=== PATIENT | female | born 1945 | race Caucasian/White ===

== ENCOUNTER 2022-11-22 15:42 | Outpatient (AMB) | payer MEDICARE, SELFPAY ==
--- NOTE | 2022-11-22 16:03 | MHC.OFFWIV ---
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 Allergies adhesive [ADHESIVE] Allergy (Unknown, Verified 11/22/22 16:04) HIVES penicillin G [PENICILLIN G] Allergy (Unknown, Verified 11/22/22 16:04) DIFFICULTY BREATHING tetracycline [TETRACYCLINE] Allergy (Unknown, Verified 11/22/22 16:04) DIFFICULTY BREATHING HPI HPI Comments History of Present Illness Details This is a 76-year-old female who was preparing meals at the [facility] when she cut her right index finger on a kitchen knife prior to arrival. The patient states that she is right-handed and was reaching under a towel to grab a knife when the laceration occurred. Patient states that her most recent tetanus immunization is up-to-date. Review of Systems Const All systems reviewed & are unremarkable except as noted in HPI and below Musc Reports no additional complaints Skin/Breast Reports system reviewed and no additional complaints, except as documented, Reports as per HPI and Reports wounds (laceration right index finger) Physical Exam Vital Signs: Last Vital Signs Temp 98.2 F 11/22/22 16:11 Pulse 88 11/22/22 16:11 BP 160/90 H 11/22/22 16:11 Pulse Ox 94 11/22/22 16:11 Oxygen Delivery Method Room Air 11/22/22 16:11 BMI result Body Mass Index 45.3 Const General: cooperative, healthy appearing, comfortable and no acute distress Nutritional Appearance: obese Orientation/consciousness: patient oriented x3 Limitations: no limitations Skin Trauma: laceration (1.5cm linear laceration; no evidence of a retained foreign body) right lateral 2nd finger Neuro General: patient oriented x3 Extrem Right upper extremity: Extremity exam: right hand Details: abnormal to inspection (laceration RIF), neuromotor exam normal and neurosensory exam normal Psych Appearance: grossly normal Mental Status: mental status grossly normal Speech and movement: Normal speech and movement present Affect: normal affect Attitude: cooperative Thought process: Normal thought process present Thought content: Normal thought content present Insight: Good insight present (Psych) Judgement: Good judgement present (Psych) Office Procedures Laceration Repair Details: 1.5cm linear laceration right distal index finger lateral aspect. Laceration repair performed by: Terese Oneal Informed consent given: Yes Location: Right index finger Length: 1.5 Sedation: No Anesthesia: 2% lidocaine Irrigation: saline Preparation: betadine Deep closure: No Skin closure: nylon Technique: 4 simple interrupted 6-0 Prolene sutures placed for adequate closure Topical treatment: triple antibiotic Tetanus toxoid ordered: No Patient tolerated procedure: well [id number] Repair <2.5cm Procedure code (CPT) selection complete Assessment & Plan Assessment & Plan (1) Finger laceration: Code(s): S61.219A - Laceration without foreign body of unspecified finger without damage to nail, initial encounter Plan: Patient is seen and evaluated; this laceration will require sutures for approximation and closure. Please see procedure note. Suture care instructions are given and the patient will return in 7 days for suture removal, sooner for any signs of infection. Coding Level of Care Code Est Pt Level 4 (70437) Diagnoses Finger laceration S61.219A Time Spent (min) 35
[2022-11-22 16:11] VITALS: BP 160/90; PULSE 88; TEMP 36.8; O2SAT 94; BMI 45.3
== END 2022-11-22 17:01 | disposition home or self-care (01) ==
PROVIDERS: PCP Internal Medicine; Visit Provider Physician Assistant
DX: S61.220A Laceration with foreign body of right index finger without damage to nail, initial encounter (principal)
CPT/HCPCS: 12001; 99214

== ENCOUNTER 2022-11-29 14:33 | Outpatient (AMB) | payer MEDICARE, SELFPAY ==
[2022-11-29 14:42] VITALS: BP 140/90; PULSE 66; TEMP 36.2; O2SAT 97; BMI 45.3
--- NOTE | 2022-11-29 14:42 | AM.OFFWIN_ITS ---
Intake Vital Signs 11/29/22 14:42 Height 5 ft 7 in Weight 289 lb BMI 45.3 BP 140/90 H Blood Pressure Location Rt brachial Position Sitting Pulse 66 Pulse Source Pulse Oximeter Temp 97.2 F Temp Source Temporal Artery Scan Pulse Oximetry (%) 97 Intake Visit Reasons: EST/stitch removal Intake Note: pt is here for stitch removal Patient Tobacco Use Status: Never used Tobacco Allergies adhesive [ADHESIVE] Allergy (Unknown, Verified 11/29/22 14:43) HIVES penicillin G [PENICILLIN G] Allergy (Unknown, Verified 11/29/22 14:43) DIFFICULTY BREATHING tetracycline [TETRACYCLINE] Allergy (Unknown, Verified 11/29/22 14:43) DIFFICULTY BREATHING Do you need a note to return to daycare/school/sports/work: Yes HPI EST/stitch removal HPI Details 77-year-old female presents to the [facility] for a sick visit. She would like to get the sutures removed. PFSH Social History Patient Tobacco Use Status: Never used Tobacco Physical Exam Vital Signs: Last Vital Signs Temp 97.2 F 11/29/22 14:42 Pulse 66 11/29/22 14:42 BP 140/90 H 11/29/22 14:42 Pulse Ox 97 11/29/22 14:42 BMI result Body Mass Index 45.3 Skin Other: Finger: Wound approximation is good. Using sterile forceps sutures were removed. Patient tolerated the procedure well. Assessment & Plan Assessment & Plan (1) Finger laceration: Code(s): S61.219A - Laceration without foreign body of unspecified finger without damage to nail, initial encounter Plan: Patient tolerated the suture removal well. Coding Level of Care Code Est Pt Level 3 (88827) Diagnoses Finger laceration S61.219A
== END 2022-11-29 15:35 | disposition home or self-care (01) ==
PROVIDERS: PCP Internal Medicine; Visit Provider Internal Medicine
DX: S61.219A Laceration without foreign body of unspecified finger without damage to nail, initial encounter (principal)
CPT/HCPCS: 99213

== ENCOUNTER 2023-09-02 14:16 | Outpatient (AMB) | payer MEDICARE, SELFPAY ==
[2023-09-02 14:21] VITALS: BP 118/76; PULSE 66; TEMP 36.7; O2SAT 96; BMI 44.5
--- NOTE | 2023-09-02 14:21 | AM.OFFWIN_ITS ---
Intake Vital Signs 09/02/23 14:21 Height 5 ft 7 in Weight 284 lb BMI 44.5 BP 118/76 Blood Pressure Location Rt radial Position Sitting Pulse 66 Pulse Source Pulse Oximeter Temp 98.1 F Temp Source Oral Pulse Oximetry (%) 96 Oxygen Delivery Method Room Air Intake Visit Reasons: EP gout lft big toe Intake Note: pt here c/o gout flare LT big toe. Started yesterday Patient Tobacco Use Status: Never used Tobacco Allergies adhesive [ADHESIVE] Allergy (Unknown, Verified 09/02/23 14:27) HIVES penicillin G [PENICILLIN G] Allergy (Unknown, Verified 09/02/23 14:27) DIFFICULTY BREATHING tetracycline [TETRACYCLINE] Allergy (Unknown, Verified 09/02/23 14:27) DIFFICULTY BREATHING Do you need a note to return to daycare/school/sports/work: No HPI HPI Comments History of Present Illness Details 77 y/o female patient who [facility] with c/o Gout Flare up. Pt c/o left Big toe pain and swelling due to Gout. She is currently taking Allopurinol 100 mg every other day. [facility] Social History Patient Tobacco Use Status: Never used Tobacco Review of Systems Const All systems reviewed & are unremarkable except as noted in HPI and below Physical Exam Vital Signs: Last Vital Signs Temp 98.1 F 09/02/23 14:21 Pulse 66 09/02/23 14:21 BP 118/76 09/02/23 14:21 Pulse Ox 96 09/02/23 14:21 Oxygen Delivery Method Room Air 09/02/23 14:21 BMI result Body Mass Index 44.5 Const General: comfortable and no acute distress Nutritional Appearance: obese Orientation/consciousness: patient oriented x3 Skin General skin exam: no rashes or lesions noted Neuro Other: Walks with a cane General: patient oriented x3 and moves all extremities Extrem Right lower extremity: foot Details: normal capillary refill and normal to inspection Left lower extremity: foot (Left great toe swollen, tender and redness) Details: normal capillary refill, tenderness Location: of the great toe Location: along the dorsal aspect and along the entire digit, toes with normal ROM, warmth and edema Location: of the great toe Psych Speech and movement: Normal speech and movement present Assessment & Plan Assessment & Plan (1) Gout flare: Code(s): M10.9 - Gout, unspecified Qualifiers: Gout site: toe Gout etiology: other secondary cause Laterality: left Qualified Code(s): M10.472 - Other secondary gout, left ankle and foot Plan: Advised to F/U with PCP (@ [facility], Dr. Jacob). Prescribed Colchicine and Prednisone Ice/Hot Rest Foot Lifestyle and Diet changes Medications: New prednisone 50 mg PO DAILY 5 days 5 tabs 0RF M10.472 - Other secondary gout, left ankle and foot colchicine 0.6 mg PO DAILY 20 caps 0RF M10.472 - Other secondary gout, left ankle and foot Coding Level of Care Code New Pt Level 3 (22602) Diagnoses Acute gout due to other secondary cause involving toe of left foot M10.472 Gout site: toe Gout etiology: other secondary cause Laterality: left Time Spent (min) 15
== END 2023-09-02 15:00 | disposition home or self-care (01) ==
PROVIDERS: PCP Internal Medicine; Visit Provider Nurse Practitioner Family
DX: M10.472 Other secondary gout, left ankle and foot (principal)
CPT/HCPCS: 99203

== ENCOUNTER 2024-07-31 10:28 | Outpatient (AMB) | payer MEDICARE, SELFPAY ==
--- NOTE | 2024-07-31 11:03 | AM.OFFWIN_ITS ---
Intake Vital Signs 07/31/24 11:08 Weight 279 lb BP 126/82 Blood Pressure Location Lt brachial Position Sitting Pulse 63 Pulse Source Pulse Oximeter Pulse Oximetry (%) 94 Oxygen Delivery Method Room Air Intake Visit Reasons: EP ? stitches on LT thumb Intake Note: Patient here for laceration on left thumb that happened this morning. Patient Tobacco Use Status: Never used Tobacco Allergies adhesive [ADHESIVE] Allergy (Unknown, Verified 07/31/24 11:12) HIVES penicillin G [PENICILLIN G] Allergy (Unknown, Verified 07/31/24 11:12) DIFFICULTY BREATHING tetracycline [TETRACYCLINE] Allergy (Unknown, Verified 07/31/24 11:12) DIFFICULTY BREATHING Do you need a note to return to daycare/school/sports/work: No HPI HPI Comments History of Present Illness Details History of Present Illness - The patient is a 78-year-old female pr esenting with a laceration of the left thumb, sustained this morning while using hedge clippers. - The incident occurred around 9:15 AM. The patient reported that she nicked her finger, causing a laceration with a flap. - After the injury, she attempted to rep osition the flap, which resulted in the wound bleeding substantially. The blood seemed to form an adhesive that partially closed the wound. - She takes a daily baby aspirin. - She irrigated it briefly with water bu t was unable to do more due to the extent of bleeding. - The patient took baby aspirin earlier today, potentially exacerbating the bleeding. - Her Tdap vaccination is current, with the last dose administered three years prior. Physical Exam General: Cooperative, healthy appearing, comfortable, no acute distress and well developed Orientation: Patient oriented x3 Limitations: No limitations Head: Normal to inspection Ears: Hearing grossly normal bilaterally Nose: Normal External nose present Face and sinus: Normal facial exam Eyes: Appearance normal, both eyes and all related structures Neck: Normal visual inspection and Yes full ROM Respiratory: Normal respiratory effort and able to speak in complete sentences. Skin: No rashes or lesions noted Neuro: Patient oriented x3 Extremities: Normal to inspection, left thumb tip 0.3cm flap, NVI, nail undamaged, full ROM left thumb PFSH Social History Patient Tobacco Use Status: Never used Tobacco Review of Systems Const All systems reviewed & are unremarkable except as noted in HPI and below Physical Exam Vital Signs: Last Vital Signs Pulse 63 07/31/24 11:08 BP 126/82 07/31/24 11:08 Pulse Ox 94 07/31/24 11:08 Oxygen Delivery Method Room Air 07/31/24 11:08 Office Procedures AMB Laceration Repair Details: Cleaned with sterile saline with some betadine diluted in it, irrigated wound, hemostasis was assisted by using a pressure dressing then 3 steri-strips applied with gauze covering. Laceration repair performed by: Chinyere Arce Explained risks and benefits to parent: Yes Informed consent given: Yes Consent signed: No Location: left thumb tip Length: 0.75c Sedation: No Irrigation: saline (with small amt of betadine diluted) Volume (mls): 60 Preparation: betadine Wound exploration: none Deep closure: No Skin closure: other (3 steri strips) Topical treatment: dry Tetanus toxoid ordered: No Patient tolerated procedure: [place]: [place] [id number] Repair <2.5cm Procedure code (CPT) selection complete Laceration Repair Procedure Location: left thumb tip, 0.75cm skin flap bleeding. Text: After discussion of risk and benefits, written informed consent was obtained. The area was cleaned, prepped, and draped using sterile technique. The wound was debrided of any foreign material or devitalized tissue. Wound edges were approximated and closed using 3 steri-strips. Standard wound dressing was applied. Wound care instructions were given. The patient tolerated the procedure well. The patient was instructed to return for increased redness or red streaking, pain, swelling, pus, fevers, chills, or any other signs or symptoms of infection or worsening. DAC Assessment & Plan Assessment & Plan (1) Finger laceration: Code(s): S61.219A - Laceration without foreign body of unspecified finger without damage to nail, initial encounter Qualifiers: Damage to nail status: without damage Encounter type: initial encounter Finger: thumb Foreign body presence: without foreign body Laterality: left Qualified Code(s): S61.012A - Laceration without foreign body of left thumb without damage to nail, initial encounter Plan: The primary management approach for the patient's left thumb laceration involves conservative treatment due to the presence of a skin flap. Adhesion support was provided via Steri-Strips after determining that the wound is less suited to sutures, given the potential for increased bleeding. Cleaned with sterile saline with some betadine diluted in it, irrigated wound, hemostasis was assisted by using a pressure dressing then 3 steri-strips applied with gauze covering. Instructed pt to remove gauze tomorrow morning. The patient was instructed to keep the area clean with minimal disturbance and advised against using hydrogen peroxide. She received bacitracin ointment to promote healing. Monitoring for signs of complications, swelling, drainage, redness, fevers or pain, is emphasized, with awareness that her aspirin use may influence bleeding time. No booster for Tdap is warranted at this time, given her recent vaccination status, Tdap 01/15/22. Patient was informed and verbally consented to the use of an ambient scribe for clinic note documentation during this visit. Orders: Orders AMB Laceration Repair Today S61.012A - Laceration without foreign body of left thumb without damage to nail, initial encounter Coding Level of Care Code New Pt Level 4 (93875) Diagnoses Laceration of left thumb without foreign body without damage to nail, initial encounter S61.012A Damage to nail status: without damage Encounter type: initial encounter Finger: thumb Foreign body presence: without foreign body Laterality: left CPT Codes Office Procedure - Laceration Repair 1: [id number] Repair <2.5cm ([id number])
[2024-07-31 11:08] VITALS: BP 126/82; PULSE 63; O2SAT 94
--- OUTSIDE RECORDS SUMMARY | 2024-07-31 11:15 | XMS_ITS ---
Author Organization [facility] Address [address] [place] [address] Care Team Providers Care Ordnance Technician Name Role Phone Aleta Cruz Primary Care Provider Sharad John Unavailable [phone] Allergies Allergen (clinical drug ingredient) Drug/Non Drug Allergy documented on EMR Reaction Allergy Type Onset Date Status Novocain Unknown Drug Allergy Active tetracycline Tetracycline HCl throat tightens Drug Allergy Active Adhesive rash Allergy Active Penicillin throat tightens Drug Allergy Active REASON FOR VISIT At Risk Footcare, Painful Nail(s) aggravated by shoes and causing difficulty standing/walking, Toe Irritation Medications Medication SIG (Take, Route, Frequency, Duration) Notes Start Date End Date Status hydroCHLOROthiazide 12.5 MG 1 capsule Orally Once a day for 30 day(s) Not-Taking Levoxyl 50 MCG 1 tablet on an empty stomach in the morning Orally Once a day for 30 day(s) Not-Taking CeleBREX 100 MG 1 capsule Orally Twice a day for 30 day(s) Not-Taking predniSONE 1 MG as directed Orally Not-Taking Extra Depth Orthopedic Shoes, (1) Pair With (3) Pair Custom Heat Molded Multidensity Innersoles Dx: NIDDM/PVD(E11.51), Hammertoe Foot Deformity(M20.41,M20 .42), Preulcerative Skin Lesion(s)(L85.1) Wear Daily for 365 days 05/22/2024 Active Ciclopirox Olamine 0.77 % 1 application to affected area Externally to feet Twice a day for 30 days Not-Taking Ammonium Lactate 12 % 1 application to affected area Externally to feet Twice a day for 30 days Not-Taking Antibiotic 10 days Not-Takin g Coumadin Not-Taking Levothyroxine Sodium Not-Taking Triamterene 37.5-25 Active Compression Stockings 20-30mm Hg 1 pair wear daily for 30 days Active Colcrys 0.6 MG 1 tablet Orally Up to Four times a day for 5 days 02/14/2024 Active metFORMIN HCl Not-Ta paulino Omeprazole 40 MG Orally Once a day Not-Taking Famotidine Active Allopurinol 100 MG 1 tablet Orally Once a day Active Levothyroxine Sodium 125 MCG 1 tablet in the morning on an empty stomach Orally 8 a week Active Social History Tobacco Use: Social History Observation Description Date Details (start date - stop date) Never Smoker NA - NA Tobacco use other than smoking: Question Answer Notes Are you an other tobacco user? No Tobacco Control (Standard) Question Answer Notes Tobacco use: Nonsmoker Additional Findings: Tobacco non-user Current no nsmoker AUDIT-C (Standard) Question Answer Notes Did you have a drink containing alcohol in the p ast year? No Points 0 Interpretation Negative Vital Signs Height 5ft 7in in 05/22/2024 Weight 275 lbs 05/22/2024 BMI 43.07 kg/m2 05/22/2024 Blood pressure systolic 120 mm Hg 05/23/19 25 Blood pressure diastolic 80 mm Hg 025 Procedures Procedure Date Ordered Date Performed Result Body Sit e 02651-ZVXDDUD NAIL, 6 OR MORE 05/22/2024 N/A 75108-QCQP SKIN LESIONS, OVER 4 05/22/2024 N/A Encounters Encounter Location Date Provider Diagnosis [facility] [address] [place] [address] 05/22/2024 Sharad Kan Type 2 diabetes mellitus with diabetic peripheral angiopathy without gangrene E11.51 ; Tinea unguium B35.1 ; Pain in right toe(s) M79.674 ; Pain in left toe(s) M79.675 ; Other hammer toe(s) (acquired), left foot M20.42 and Other hammer toe(s) (acquired), right foot M20.41 Assessments Encounter Date Diagnosis (ICD Code) Assessment Notes Treatment Notes Treatment Clinical Notes Section Notes 05/22/2024 Type 2 diabetes mellitus with diabetic peripheral angiopathy without gangrene (ICD-10 - E11.51) Q7(A), Q8(2B), Q9(1B,2C) 05/22/2024 Tinea unguium (ICD-10 - B35.1) 05/22/2024 Pain in right toe(s) (ICD-10 - M79.674) 05/22/2024 Pain in left toe(s) (ICD-10 - M79.675) 05/22/2024 Other hammer toe(s) (acquired), left foot (ICD-10 - M20.42) 05/22/2024 Other hammer toe(s) (acquired), right foot (ICD-10 - M20.41) Patient Educated with: DIABETIC FOOT CARE INSTRUCTIONS.p df (DIABETIC FOOT CARE INSTRUCTIONS.p df) Plan Of Treatment Medication Medication Name Sig Start Date Stop Date Notes Extra Depth Orthopedic Shoes , (1) Pair With (3) Pair Custom Heat Molded Multidensity Innersoles Dx: NIDDM/PVD(E11.51), Hammertoe Foot Deformity(M20.41,M20.42), Preulcerative Skin Lesion(s)(L85.1) Wear Daily for 365 days 05/22/2024 Treatment Notes Assessment Notes Other hammer toe(s) (acquired), right fo ot Patient Educated with: DIABETIC FOOT CARE INSTRUCTIONS.pdf (DIABETIC FOOT CARE INSTRUCTIONS.pdf) Pending Test Test Name Order Date 14138-LGMOYRI NAIL, 6 OR MORE 05/22/2024 27457-ULEU SKIN LESIONS, OVER 4 05/23/19 25 Next Appt Details Follow Up: prn, Reason: Provider Name:Sharad Kan , 08/21/2024 11:00:00 AM, [address] [place] [address], [id number], Procedure Notes * Category Sub-Category Detail Notes Debride Nail 6-10 Nail debridement Due to the cl inical pathology outlined in the exam findings, performance of this nail treatment is medically necessary as its management by an unskilled/untrained nonprofessional would put this patients foot and overall health at risk. Therefore, debridement to affected nail(s), as described in exam ( TA, T1, T2, T3, T4, T6, T7, T8, T9 ), was performed exclusively by the physician of record to reduce/remove overall nail length, girth, thickness, subungual debris, and necrotic tissue, by manual and/or electrical means through the use of a nail nipper and/or dremel-type centerless grinder tender, to a more viable healthy nail plate or bed tissue 6-10 nails in total. Silver nitrate was used for any petechial bleeding as necessary. Definitive antifungal treatment options, both pharmaceutical and surgical, have been reviewed and discussed with the patient. The patient solely prefers the use of intermittent/as needed professional debridement services for their nail condition and understands the need for additional periodic treatments to maintain effectiveness in symptomatic relief - 12578 Keratoma Treatment Parring or Cutting o f Benign Hyperkeratotic Lesion(s) (-57) More than 4 Lesions - Due to the at risk nature of the patients medical condition as documented in the exam findings, performance of this keratoderma treatment is medically necessary as its management by an unskilled/untrained nonprofessional would put this patients foot and overall health at risk. Therefore, the benign hyperkeratotic lesions, ( 6 ) in total, locations as stated and described in the exam ( Medial plantar, IPJ, TA, Medial plantar, IPJ, T5, SUB MTH (s), 1, B/L , Plantar, Heel(s), B/L ), were pared, and/or cut utilizing a sterile 15 blade, tissue nippers, and/or power dremel instrumentation by the physician of record - 60220, Q8 Progress Notes * MERCEDESEvette MCMAHANith ADOB: [birth year] (78 yo F)Acc No.[id number]:05/22/2024 Progress Note Patient:?Cele ABEL A Provider:?Sharad Kan DPM :1945???Age:78 Y???Sex:Female D ate:05/22/2024 Address:[address] [place], [place] [id number] Pcp:Aleta Cruz Subjective: * Chief Complaints: * ???At Risk FootcarePainful N ail(s) aggravated by shoes and causing difficulty standing/walkingToe Irritation * HPI: ???At Risk footcare:?Pt States Last PCP Visit:?Date?12/05/2023 States has an appt with PCP soon - couple weeks ???Toe pain:?Location:?B/L feet.?Duration:?several years.?Course:?worse.?Aggravated by:?shoes, any pressure.?Treatments:?change in shoes.? * ROS:?General/Constitutional:?Nausea?denies.?Vomiting?denies.?Hunger Thirst?denies.?Loss appetite?denies.?Chills?denies.?Fatigue?denies.?Fever?denies.?Night Sweats?denies.?Unexplained weight loss?denies.?Unexplained weight gain?denies.?HEENTM:?Dentures?denies.?Dizziness?denies.?Glasses/contacts?denies.?Retinopathy?den ies.?Blurred/double vision?denies.?TMJ?denies.?Discharge/drainage?denies.?Implants?denies.?Sore throat?denies.?Dental implants?denies.?Hard of hearing ?denies.?Difficulty chewing/swallowing/speaking?denies.?Nose bleeds?denies.?Sore mouth?denies.?Respiratory:?On O xygen?denies.?Pneumonia/pleurisy?denies.?Bronchitis?denies.?Emphysema?denies.?Co ughing?denies.?Cough blood?denies.?Shortness of breath?denies.?Wheezing?denies.?Cardiovascular:?Pacemaker?denies.?MVP?denies.?WPW?denies.?CHF?denies.?Heart attack?denies.?Septal defect?denies.?Rapid beat?denies.?Chest pain ?denies.?Atrial Fib.?denies.?Murmur/Palpitations?denies.?Gastrointestinal:?Hemorrhoids?denies.?Stomach/Abdominal pain?denies.?Dark blood stool?denies.?Irritable bowel ?denies.?Constipation?denies.?Diarrhea?denies.?Hematology:?Swelling?admits.?Clots?denies.?Varicose Veins?denies.?Bruising?denies.?Bleeding problem?denies.?Genitourinary:?Blood urine?denies.?Frequent/Painfu/urination/bladder control?denies.?Kidney stones?denies.?Infection (UTI)?denies.?Nephropathy?denies.?sex trans dis (STD)?denies.?Prostate?denies.?Musculoskeletal:?Hammertoes?admits.?Bunions?denies.?Back Pain?denies.?Muscle Cramps/ Resting?denies.?Muscle cramps / walking?denies.?Generalized aches and pains?admits.?Weakness?denies.?Integ.:?Downing?denies.?Scars?denies.?Corns/calluses?admits.?Ingrown nails?admits.?Painful nails?admits.?Open Sores?denies.?Rashes?denies.?Neurologic:?Difficulty sleeping?denies.?Brain disorder?denies.?Numbness?denies.?Balance t rouble?denies.?Confusion?denies.?Fainting/blackouts?denies.?Tingling?denies.?Tree mors?denies.? * Medical History:? * Surgical History:?cholecyste ctomy 2002knee surgery, left 2006knee surgery, right 2006right hip replacement 2011left hip replacement 2012colonoscopy 05/31/16sigmoidoscopy * Hospitalization/Major Diagno stic Procedure:?Patient is receiving chemo at [facility] cancer surgery for thyroid cancer. 07/25/2012[facility]- diverticulitis 12/20/20 * Family History:?Mother: dece ased, diagnosed with Other specified conditions influencing health status, Family history of arthritis.?Father: , heart attack, diagnosed with Family history of arthritis.?Maternal Grand Mother: diabetes.?Siblings: heart attack, leukemia.? * Social History:?Tobacco Use:?Tobacco use other than smoking?Are you an other tobacco user??No ?Tobacco Control (Standard)?Tobacco use:?Nonsmoker ?Additional Findings: Tobacco non-user?Current nonsmoker ???Drugs/Alcohol:?Drugs?Have you used drugs other than those for medical reasons in the past 12 months??No ???Miscellaneous:?Caffeine: yes, frequency:, 3-5 cups per day. ?Children: yes, 1. ?Exercise: yes, gardening/yard work, housework. ?Marital status: . 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 ???Drug/Alcohol:?AUDIT-C (Standard)?Did you have a drink containing alcohol in the past year??No ?Points?0 ?Interpretation?Negative * Medications:?TakingFamotidin e Allopurinol 100 MG Tablet 1 tablet Orally Once a day Levothyroxine Sodium 125 MCG Tablet 1 tablet in the morning on an empty stomach Orally 8 a week Triamterene 37.5-25 Compression Stockings 20-30mm Hg closed toe- knee high 1 pair wear daily Colcrys 0.6 MG Tablet 1 tablet Orally Up to Four times a day Taking Famotidine Taking Allopurinol 100 MG Tablet 1 tablet Orally Once a day Taking Levothyroxine Sodium 125 MCG Tablet 1 tablet in the morning on an empty stomach Orally 8 a week Taking Triamterene 37.5-25 Taking Compression Stockings 20-30mm Hg closed toe- knee high 1 pair wear daily Taking Colcrys 0.6 MG Tablet 1 tablet Orally Up to Four times a day Not-Taking/PRNmetFORMIN HCl Omeprazole 40 MG Capsule Delayed Release Orally Once a day Ciclopirox Olamine 0.77 % Cream 1 application to affected area Externally to feet Twice a day Ammonium Lactate 12 % Cream 1 application to affected area Externally to feet Twice a day Antibiotic , Notes to Pharmacist: 10 daysCoumadin Levothyroxine Sodium hydroCHLOROthiazide 12.5 MG Capsule 1 capsule Orally Once a day Levoxyl 50 MCG Tablet 1 tablet on an empty stomach in the morning Orally Once a day CeleBREX 100 MG Capsule 1 capsule Orally Twice a day predniSONE 1 MG Tablet as directed Orally Medication List reviewed and reconciled with the patientNot-Taking/PRN metFORMIN HCl Not-Taking/PRN Omeprazole 40 MG Capsule Delayed Release Orally Once a day Not-Taking/PRN Ciclopirox Olamine 0.77 % Cream 1 application to affected area Externally to feet Twice a day Not-Taking/PRN Ammonium Lactate 12 % Cream 1 application to affected area Externally to feet Twice a day Not-Taking/PRN Antibiotic , Notes to Pharmacist: 10 daysNot-Taking/PRN Coumadin Not-Taking/PRN Levothyroxine Sodium Not-Taking/PRN hydroCHLOROthiazide 12.5 MG Capsule 1 capsule Orally Once a day Not-Taking/PRN Levoxyl 50 MCG Tablet 1 tablet on an empty stomach in the morning Orally Once a day Not-Taking/PRN CeleBREX 100 MG Capsule 1 capsule Orally Twice a day Not-Taking/PRN predniSONE 1 MG Tablet as directed Orally Medication List reviewed and reconciled with the patient * Allergies:?Tetracycline HCl: throat tightensNovocainPenicillin: throat tightensAdhesive: rashyes[Allergies Verified] Objective: * Vitals:?Ht: 5ft 7in, Wt:275, BMI: 43.07, Shoe size:10W, BP:120/80mm Hg, BS:not taken, Wt-k.74 kg. * ???Past Orders: ???Lab:HEMOGLOBIN A1C (GLYCO HEMOGLOBIN) (Order Date - 10/06/2023) (Collection Date & Time - 05/22/2024 11:04 AM) ? Value Reference Range ?HEMOGLOBIN A1C % (HH) 6.8 * Examination: ???Ophthalmology Referral: ?DIABETES EYE EXAM?Procedure Performed:?Yes ?Date of Exam Performed?02/06/2024 ?Diabetic Retinopathy Screening:?Yes ?Retinal Screening Performed:?Yes ?Findings of Diabetic Eye Exam:?no retinopathy?Vascular: ?DP PULSES (B):?1/4, B/L.?PT PULSES (B):? 0/4, B/L.?CAPILLARY FILL TIME:? 4 secs. per digit, B/L.?TROPHIC CONDITION-TEXTURE/ELASTICITY/TURGOR/HAIR GROWTH (B):? decreased,?with sparse to absent hair growth, B/L.?TEMPERTURE GRADIENT (C):? decreased, cool to cool, proximal to distal, B/L.?PIGMENTATION:? rubrous, B/L.?EDEMA (C):?2-3/4, non-pitting, NOW, without, aching pain, B/L, Leg(s), Ankle(s), Feet.?CLAUDICATION (C):?denies, B/L.?REST PAIN:?denies, B/L.?RANI'S SIGN:?absent, B/L.?PALPABLE CORDS:?absent, B/L.?Nails: ?NAILS are:?Elongated, overgrown, dystrophic, lytic, greater than 3mm thick, discolored and friable with crumbly malodorous subungual debris, with pain on palpation, ?TA, T1, T2, T3, T4, T6, T7, T8, T9, all other nails not described with characteristics as possessing mycosis are elongated, overgrown, and dystrophic.?Dermatologic: ?SKIN FINDINGS:?Skin exam reveals Keratotic lesion(s) located at, Medial plantar, IPJ, TA, Medial plantar, IPJ, T5, SUB MTH (s), 1, B/L , Plantar, Heel(s), B/L.?Orthopedic: ?MUSCLE STRENGTH:?5/5 all groups in a symmetrical fashion , B/L.?FOOT MORPHOLOGY:?Pes Planus structure, (-) Charcot collapse/destruction noted at MTJ.?DIGITAL DEFORMITIES:?Digital contracture, PIPJ, 2-5 B/L, incompl-reducible to push-up test, no over, nor underlapping , with evidence of shoe producing skin irritation.?FOOTWEAR:?worn, OT were inspected and noted to be severely worn , in poor condition not giving proper support at the present time , shoe gear properties exacerbate patients foot/toe deformity.?Neurological: ?SENSORY:?Neurological exam reveals intact sensorium, pain sensation normal, vibration sensation intact, pinprick sensation is normal in the lower extremities, 5.07 monofilament test performed at plantar aspects of 5 varied sites per foot shows sensation, normal, B/L, Pt denies, anesthesia, burning, paresthesia, tingling, B/L.?General Examination: ?GENERAL APPEARANCE:?Reveals a pleasant, alert, well nourished, well developed, well hydrated individual, who demonstrates proper attention to hygiene/body habitus, and is in no acute distress , Pt serves as own historian for office visit today.?ORIENTED:?person, place, and time.?FOOT EXAM:?Lower Extremity Neurological Exam performed:?Yes ?Visual exam of foot performed:?Yes ?Date?05/22/2024 ?Footwear Evaluation?Footwear Evaluation performed:?Yes??? Assessment: * Assessment: 1.?Type 2 diabetes mellitus with diabetic peripheral angiopathy without gangrene - E11.51???Specify :Q8???Notes :Q7(A), Q8(2B), Q9(1B,2C)???2.?Tinea unguium - B35.1???3.?Pain in right toe(s) - M79.674???4.?Pain in left toe(s) - M79.675???5.?Other hammer toe(s) (acquired), left foot - M20.42???Specify :Chronic problem, Worse (4),Rx Management (4)???6.?Other hammer toe(s) (acquired), right foot - M20.41 (Primary)???Specify :Chronic problem, Worse (4),Rx Management (4)??? Plan: * Treatment: 2.?Type 2 diabetes mellitus with diabetic peripheral angiopathy without gangrene?Procedure: 18790-XMCU SKIN LESIONS, OVER 4 3.?Tinea unguium?Procedure: 01502-NSLRUSD NAIL, 6 OR MORE * Procedures:?Debride Nail 6-10:?Nail debridement?Due to the clinical pathology outlined in the exam findings, performance of this nail treatment is medically necessary as its management by an unskilled/untrained nonprofessional would put this patients foot and overall health at risk. Therefore, debridement to affected nail(s), as described in exam (??TA, T1, T2, T3, T4,?T6,?T7,?T8,?T9 ), was performed exclusively by the physician of record to reduce/remove overall nail length, girth, thickness, subungual debris, and necrotic tissue, by manual and/or electrical means through the use of a nail nipper and/or dremel-type centerless grinder tender, to a more viable healthy nail plate or bed tissue 6-10 nails in total. Silver nitrate was used for any petechial bleeding as necessary. Definitive antifungal treatment options, both pharmaceutical and surgical, have been reviewed and discussed with the patient. The patient solely prefers the use of intermittent/as needed professional debridement services for their nail condition and understands the need for additional periodic treatments to maintain effectiveness in symptomatic relief - 63768.?Keratoma Treatment:?Parring or Cutting of Benign Hyperkeratotic Lesion(s)?(-57) More than 4 Lesions - Due to the at risk nature of the patients medical condition as documented in the exam findings, performance of this keratoderma treatment is medically necessary as its management by an unskilled/untrained nonprofessional would put this patients foot and overall health at risk. Therefore, the benign hyperkeratotic lesions, ( 6 ) in total, locations as stated and described in the exam (?Medial plantar,?IPJ,?TA,?Medial plantar,?IPJ,?T5,?SUB MTH (s),?1,?B/L?,?Plantar,?Heel(s),?B/L?), were pared, and/or cut utilizing a sterile 15 blade, tissue nippers, and/or power dremel instrumentation by the physician of record - 30131, Q8.? * Procedure Codes:?88267 DEBRI DE NAIL, 6 OR MORE, Modifiers: XS 24664 TRIM SKIN LESIONS, OVER 4, Modifiers: XS , Q8 * Preventive Medicine:? ??Counseling:?Discussion:?-14: Office or other outpatient visit for the evaluation and management of an established patient, which required a medically appropriate history and/or examination and MODERATE level of DECISION MAKING for: 1 OR MORE CHRONIC PROBLEM(S) THATS WORSENING, 2 STABLE CHRONIC PROBLEMS, A NEWLY DIAGNOSED PROBLEM WITH UNCERTAIN PROGNOSIS, AN ACUTE COMPLICATED INJURY WITH MULTIPLE TREATMENT OPTIONS, OR AN ACUTE PROBLEM WITH ACCOMPANYING SYSTEMIC SYMPTOMS, THAT POSE(S) A MODERATE RISK OF MORBIDITY. THIS CONDITION MAY ALSO INCLUDE RX DRUG MANAGEMENT, OR A DECISON FOR MINOR SURGERY. The visit on the day of the encounter encompassed interpreting the data and educating the patient as to the nature of their condition, treatment options available according to their individual PMH, meds, allergies, and overall health/living conditions, as well as any potential risks or complications that may occur from a failure to adhere to, and participate in, the recommended course of therapy. The discussion included a complete verbal, and/or written explanation of the examination results, any x-rays taken, the proposed diagnosis, and outline of the treatment plan. A schedule for future care needs was also explained. The patient verbalized an understanding of the instructions at this time and agreed to be an active participant in their treatment. If the patient should think of any questions or concerns after the visit, I have encouraged the patient to call the office.?Digital Surgery:?Digital surgery was discussed with the patient, We elected to try conservative treatment at the present time, due to the patients medical history and increased asssociated post-operative risks.?Digital Treatment:?HT- I explained to the patient the possible etiologies of Hammertoes, including genetics/foot type/shoegear/activity level/exercise routine and the risks/benefits of all the different treatment options for their pain including: No treatment at all, Rest, Ice, New/supportive/wider/deeper Shoegear, Digital Padding/Strapping/Taping/Bracing/Gel protective sleeves, Foot/Ankle AFO Bracing, Stretching exercises, Deep Tissue Massage, Arch support/shoe inserts with splay metatarsal padding, and Custom orthoses. I insisted that any digital devices be removed daily and not worn overnight for safety. The patient is to carefully examine the toes daily for any skin irritation while using any splinting or padding device. The advantages and disadvantages of each option were discussed and the patients questions re: shoegear, padding, custom vs prefabricated inserts, activity level, and consistency in home treatment regimens for optimal success were answered to their verbally confirmed satisfaction.?Shoe Gear Counseling:?SHOE Rx - The patient was counseled in great detail on their muscoloskeletal foot and toe deformities which coincided with the dermatological presentations visualized on exam. We discussed how their deformities put the integrity of their feet at risk for potential pedal complications which makes the accomidative diabetic shoes and cutomizable inserts medically necessary. We discussed the different shoe and insert treatment types and options, as well as the important advantages for adhering to regularly wearing these accomidative devices daily. The patient was made aware of the fact that a failure to abide by these recommedations may be deleterious to their foot health as they are able to prevent many pedal complications such as skin irritation, skin ulceration, infection, and even loss of toe/foot/leg/or life. Time was also spent with the patient dispensing and discussing proper diabetic footcare techniques including daily skin moisturization, daily foot inspection for any interruption in skin integrity including open lesions, or sign of infection such as redness/malodor/drainage/swelling. Also discussed and recommended were procedures regarding daily shoe inspection for the presence of internal foreign bodies as well as any visualized irregular shoe or insert wear. Patient questions re: shoes, inserts, and self foot inspections were answered to their satisfaction as the patient verbally confirmed a full understanding of the above information. A Rx for Extra Depth Orthopedic Shoes with 3 pair of custom heat-molded inserts was dispensed.? ??Screening/Special Tests:?Fall Risk?Screening:?No falls in the past year ?FALLS: Screening for Future Fall Risk?Have you had any falls with injury in the past year??No * Follow Up:?prn * Images: * Sign off status: Completed true * Provider:?Sharad Kan DPM Date:?2024 Generated for Katharine deleon/Armaan/Sonia on:?07/31/2024 11:14 AM EDT History and Physical Notes * HPI (History of Present Illness) Category Sub-Category Detail Notes Category Not es Toe pain Location: B/L feet Duration: several years Course: worse Aggravated by: shoes, any pressure Treatments: change in shoes At Risk footcare Pt States Last PCP Visit: Date: 12/05/2023 States has an appt with PCP soon - couple weeks Examination Category Sub-Category Detail Notes Category Not es Neurological SENSORY: Neurological exa m reveals intact sensorium, pain sensation normal, vibration sensation intact, pinprick sensation is normal in the lower extremities, 5.07 monofilament test performed at plantar aspects of 5 varied sites per foot shows sensation, normal, B/L, Pt denies, anesthesia, burning, paresthesia, tingling, B/L Dermatologic SKIN FINDINGS: Skin exam reveal s Keratotic lesion(s) located at, Medial plantar, IPJ, TA, Medial plantar, IPJ, T5, SUB MTH (s), 1, B/L , Plantar, Heel(s), B/L Orthopedic FOOT MORPHOLOGY: Pes Planus stru cture, (-) Charcot collapse/destruction noted at TNJ FOOTWEAR EVALUATION: worn, OT were inspe cted and noted to be severely worn , in poor condition not giving proper support at the present time , shoe gear properties exacerbate patients foot/toe deformity DIGITAL DEFORMITIES: Digital contracture , PIPJ, 2-5 B/L, incompl-reducible to push-up test, no over, nor underlapping , with evidence of shoe producing skin irritation MUSCLE STRENGTH: 5/5 all groups in a symmetrical fashion , B/L General Examination GENERAL APPEARANCE: Reveals a pleasant, alert, well nourished, well developed, well hydrated individual, who demonstrates proper attention to hygiene/body habitus, and is in no acute distress , 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 per digit, B/L TEMPERTURE GRADIENT (C): decreased, cool to cool, proximal to distal, B/L TROPHIC CONDITION-TEXTURE/ELASTICITY/TURGOR/HAIR GROWTH (B): decreased, with sparse to absent hair gr owth, B/L EDEMA (C): 2-3/4, non-pitting, NOW, without, aching pain, B/L, Leg(s), Ankle(s), Feet CLAUDICATION (C): denies, B/L REST PAIN: denies, B/L RANI'S SIGN: absent, B/L PALPABLE CORDS: absent, B/L PIGMENTATION: rubrous, B/L Nails NAILS are: Elongated, overg rown, dystrophic, lytic, greater than 3mm thick, discolored and friable with crumbly malodorous subungual debris, with pain on palpation, TA, T1, T2, T3, T4, T6, T7, T8, T9, all other nails not described with characteristics as possessing mycosis are elongated, overgrown, and dystrophic
== END 2024-07-31 12:26 | disposition home or self-care (01) ==
PROVIDERS: PCP Internal Medicine; Visit Provider Physician Assistant
DX: S61.012A Laceration without foreign body of left thumb without damage to nail, initial encounter (principal)

== ENCOUNTER → 2024-07-31 10:28 | Outpatient (BNVA) | payer MEDICARE, SELFPAY | PROVIDERS: PCP Internal Medicine; Visit Provider Physician Assistant | DX: S61.012A Laceration without foreign body of left thumb without damage to nail, initial encounter (principal) | CPT/HCPCS: 12001; 99202 ==